=== PATIENT | female | born 1995 | race Caucasian/White ===

== ENCOUNTER 2021-06-10 12:24 | Emergency (ER) | payer BC, SELFPAY ==
[2021-06-10 13:30] VITALS: BP 134/80; PULSE 93; RESP 16; TEMP 37.1; O2SAT 100
--- NOTE | 2021-06-10 14:13 | ED.URI ---
HPI - URI/Sore Throat General Chief Complaint: Upper Respiratory Infection Stated Complaint: sore throat,fever,cough Source: patient Mode of arrival: ambulatory Limitations: no limitations History of Present Illness HPI Narrative: Patient is a 25-year-old female who presents complaining of cough, congestion, sore throat, hoarseness and fever x2 days. She denies known Covid exposure. Patient is not vaccinated. She denies chest pain or shortness of breath. She denies all other complaints at this time. Related Data Home Medications Medication Instructions Recorded Confirmed No Home Medications 06/10/21 06/10/21 Allergies Allergy/AdvReac Type Severity Reaction Status Date / Time No Known Allergies Allergy Mild Verified 06/10/21 15:04 Review of Systems Review of Systems: CONSTITUTIONAL: Reports fever, chills and body aches EYES: Denies visual changes, redness, or discharge. ENT: Denies rhinorrhea, congestion, reports sore throat and hoarseness CARDIOVASCULAR: Denies chest pain, palpitations, or edema. RESPIRATORY: Reports cough, denies dyspnea GASTROINTESTINAL: Denies abdominal pain, nausea, vomiting, or diarrhea. GENITOURINARY: Denies dysuria or hematuria. SKIN: Denies rash or itching. MUSCULOSKELETAL: Denies back pain, joint pain, or myalgia. NEUROLOGIC: Denies headache, numbness, dizziness, or weakness. PSYCHIATRIC: Denies anxiety or depression. PMFSH Comments At the time of signature, I have reviewed and agree with nursing past medical, surgical, social, and family history unless otherwise noted. Please see nursing chart for further information. There is no relevant family history pertinent to the presenting complaint. Exam Narrative: GENERAL: Well-appearing, well-nourished, and in no acute distress. HEAD: Normocephalic, atraumatic. EYES: EOMI. No redness or drainage. Conjunctiva are normal. ENT: Mucous membranes pink and moist. Nares clear. No rhinorrhea. TMs normal bilaterally. Throat with moderate erythema and edema, no exudate. Uvula midline. NECK: AROM. Supple. No lymphadenopathy. CHEST: No respiratory distress. Clear to auscultation. HEART: Regular rate and rhythm. No murmur appreciated. Normal peripheral pulses. GI: Soft, nontender without rebound, or guarding. No distention. Bowel sounds normal in all quadrants. MUSCULOSKELETAL: No bony tenderness. EXTREMITIES: Normal range of motion. No edema. SKIN: Warm, dry, no rash. NEURO: No focal deficits. Alert and oriented x3. Gait steady. PSYCH: Normal affect. No signs of depression or anxiety. Course Vital Signs Vital signs: Vital Signs Temperature 37.1 C 06/10/21 13:30 Pulse Rate 93 06/10/21 13:30 Respiratory Rate 16 06/10/21 13:30 Blood Pressure 134/80 06/10/21 13:30 Pulse Oximetry 100 06/10/21 13:30 Temperature 37.1 C 06/10/21 13:30 Pulse Rate 93 06/10/21 13:30 Respiratory Rate 16 06/10/21 13:30 Blood Pressure 134/80 06/10/21 13:30 Pulse Oximetry 100 06/10/21 13:30 Reviewed-patient is informed that they may have pre-hypertension or hypertension based on a blood pressure reading. I recommend the patient call the primary care provider listed on their discharge instructions or a physician of their choice this week to arrange follow-up for further evaluation of possible pre-hypertension or hypertension. MDM - URI/Sore Throat MDM Narrative Medical decision making narrative: Patient's rapid strep and rapid Covid are negative at this time. Discussed with patient the need for quarantine until symptoms are gone. Patient refuses Covid PCR testing at this time. Patient is unvaccinated and is aware of the possibility of Covid. Patient is stable for discharge home with outpatient follow-up as needed. Patient is aware of red flags and when to seek further treatment. Differential Diagnosis Differential diagnosis: Likely other (URI, tonsillitis, pharyngitis, Covid, influenza) Lab Data Labs: Strep Screen
== END 2021-06-10 15:10 | disposition home or self-care (01) ==
PROVIDERS: Emergency Provider Nurse Practitioner
DX: J06.9 Acute upper respiratory infection, unspecified (principal); Z20.822 Contact with and (suspected) exposure to COVID-19
CPT/HCPCS: 87081; 87426; 87880; 99203; C9803; G0463

== ENCOUNTER 2022-09-13 09:29 | Emergency (ER) | payer BC, SELFPAY ==
[2022-09-13 09:36] VITALS: BP 132/80; PULSE 79; RESP 16; TEMP 36.5; O2SAT 100
--- NOTE | 2022-09-13 09:37 | ED.URI ---
HPI - URI/Sore Throat General Chief Complaint: Unspecified Stated Complaint: HEADACHE/SORE THROAT/BACTERIAL MENINGITIS EXPOSURE Time Seen by Provider: 09/13/22 09:37 Source: patient and RN notes reviewed History of Present Illness HPI Narrative: Patient is a 27-year-old female who presents to urgent care with complaints of headache and postnasal drainage. Patient states she has had a mild sore throat for the last couple days. States that she is most concerned due to her contact with a younger child diagnosed with bacterial meningitis. 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 States that the child is admitted to [facility] and is very sick with a headache, fever. Patient states that she has also been in contact with the family since the child was admitted to the hospital. Patient denies any recent fevers, nausea, vomiting. No other acute complaints. No acute distress noted. Patient aware of plan of care. Some parts of this dictation were generated by voice recognition software and may contain typographical and/or grammatical inaccuracies. Related Data Allergies Allergy/AdvReac Type Severity Reaction Status Date / Time No Known Allergies Allergy Mild Verified 06/10/21 15:04 Review of Systems Review of Systems: CONSTITUTIONAL: Denies fever, chills, or sweats. EYES: Denies visual changes, redness, or discharge. ENT: Denies rhinorrhea, congestion, otalgia. Reports a sore throat and postnasal drainage CARDIOVASCULAR: Denies chest pain, palpitations, or edema. RESPIRATORY: Denies cough or dyspnea. GASTROINTESTINAL: Denies abdominal pain, nausea, vomiting, or diarrhea. GENITOURINARY: Denies dysuria or hematuria. SKIN: Denies rash or itching. MUSCULOSKELETAL: Denies back pain, joint pain, or myalgia. NEUROLOGIC: Reports of headache All other systems reviewed are negative, except as documented in HPI. PMFSH Comments At the time of my signature, I reviewed and agree with the nursing past medical, surgical, social, and family history. There is no relevant family history pertinent to the patient complaint. Exam Narrative: GENERAL: This is a well-nourished, well-developed patient, tearful HEAD: normocephalic, atraumatic. EYES: PERRL. Sclera clear/white. Vision is grossly intact. EARS: External ears normal, auditory canals clear and without drainage, TMs normal without perforation. Hearing grossly intact. NOSE: External nose normal with no obvious nasal discharge, nares without redness, no rhinorrhea. THROAT: Mucous membranes moist, posterior pharynx clear. Moderate postnasal drainage NECK: Neck supple, non-tender without lymphadenopathy, masses or thyromegaly. CARDIOVASCULAR: Regular rate and rhythm without murmurs, gallops, or rubs. RESPIRATORY: Clear to auscultation. Breath sounds equal bilaterally. No wheezes, rales, or rhonchi. SKIN: warm, intact with no suspicious lesions or rash, good texture and turgor. NEURO: awake, alert, and oriented to person, place and time. There were no obvious focal neurologic abnormalities. EXTREMITIES: No clubbing, cyanosis, or edema. Course Course Level of Care: Express Care Visit Vital Signs Vital signs: Vital Signs Temperature 97.7 F 09/13/22 09:36 Pulse Rate 79 09/13/22 09:36 Respiratory Rate 16 09/13/22 09:36 Blood Pressure 132/80 09/13/22 09:36 Pulse Oximetry 100 09/13/22 09:36 Oxygen Delivery Room Air 09/13/22 09:36 Temperature 97.7 F 09/13/22 09:36 Pulse Rate 79 09/13/22 09:36 Respiratory Rate 16 09/13/22 09:36 Blood Pressure 132/80 09/13/22 09:36 Pulse Oximetry 100 09/13/22 09:36 Oxygen Delivery Room Air 09/13/22 09:36 Reviewed MDM - URI/Sore Throat MDM Narrative Medical decision making narrative: Reviewed lab results with the patient. She is aware that strep swab was negative. Educated patient on culture we will call within 72 hours if culture is positive a
== END 2022-09-13 10:11 | disposition home or self-care (01) ==
PROVIDERS: Emergency Provider Nurse Practitioner Family
DX: R51.9 Headache, unspecified (principal); J02.9 Acute pharyngitis, unspecified; Z20.811 Contact with and (suspected) exposure to meningococcus
CPT/HCPCS: 87081; 87880; 99213; G0463

== ENCOUNTER 2022-10-18 11:36 | Emergency (ER) | payer BC, SELFPAY ==
[2022-10-18 11:48] VITALS: BP 123/81; PULSE 111; RESP 16; TEMP 36.5; O2SAT 100
--- NOTE | 2022-10-18 11:58 | ED.URI ---
HPI - URI/Sore Throat General Chief Complaint: Upper Respiratory Infection Stated Complaint: SORE THROAT Time Seen by Provider: 10/18/22 11:59 Source: patient, RN notes reviewed and old records reviewed Mode of arrival: ambulatory Limitations: no limitations History of Present Illness HPI Narrative: 27 year old female who presents to [facility] care with complaints of sore throat, hoarseness, body aches, headaches, sinus congestion and drainage, with fevers up to 100F since yesterday. Patient reports she has taken ibuprofen for her discomfort. Patient denies any ill exposures, has not been Covid vaccinated or had flu shot. MD elicited complaint: fever, sore throat and other (hoarseness, body aches, headache) Onset (ago): day(s) (since yesterday) Pain scale (0-10): 3 Able to tolerate fluids by mouth: Yes Exacerbating factors: swallowing Treatments prior to arrival: ibuprofen Related Data Home Medications Medication Instructions Recorded Confirmed No Home Medications 10/18/22 10/18/22 Allergies Allergy/AdvReac Type Severity Reaction Status Date / Time No Known Allergies Allergy Mild Verified 10/18/22 11:51 Review of Systems Review of Systems: CONSTITUTIONAL: Reports malaise, chills, sweats, or fever. EYES: Denies visual changes, redness, or discharge. ENT: Reports rhinorrhea, congestion, no sinus pain, no otalgia, positive for sore throat. CARDIOVASCULAR: Denies chest pain, palpitations, or edema. RESPIRATORY: Reports no cough.? Denies dyspnea. GASTROINTESTINAL: Denies abdominal pain, nausea, vomiting, diarrhea SKIN: Denies rash or itching. MUSCULOSKELETAL: Reports myalgia. NEUROLOGIC: Reports headache. All systems reviewed & are unremarkable except as noted in HPI and below PMFSH Past Medical History Medical History (Updated 10/18/22 @ 12:34 by Gloria Kumar NP) Radius fracture right Social History Social History (Updated 10/18/22 @ 12:22 by Gloria Kumar NP) Smoking status: Never smoker Alcohol intake: current Alcohol use details: social Substance use type: does not use Living arrangements: with family Gender identity (if verbalized by the patient): Female Comments At time of signature, agree with nursing past medical, surgical, social and family history. There is no relevant family history pertinent to the presenting complaint Exam Narrative: GENERAL: Well-appearing, well-nourished, and in no acute distress. HEAD: Normocephalic EYES: PERRLA, conjunctivae clear ENT: Nares clear, turbinates edematous and erythematous, clear discharge. Mucous membranes moist. TM pearly david with dull light reflex bilaterally; no tragal tenderness. Oropharynx erythematous without lesions. Tonsils not enlarged and without exudate, no drooling, no hoarseness, no trismus, uvula midline.post nasal drainage NECK: Supple.some lymphadenopathy CHEST: Clear to auscultation, breath sounds equal. No wheezing, rhonchi, rales, or stridor. No respiratory distress, speaks in full sentences.SAO2 100% on room air HEART: Regular rate and rhythm. No murmur heard. SKIN: Warm, dry, no rash. NEURO: Alert and oriented x3. PSYCH: Normal mood and affect Course Course Emergency Course: Patient is aware of diagnosis, understands and agrees to treatment plan.? Anticipatory guidance given.? Patient agrees to follow-up as directed and is aware of reasons to seek care at the emergency department. Portions of this record may have been created with voice recognition software Level of Care: Express Care Visit Vital Signs Vital signs: Vital Signs Oxygen Delivery Room Air 10/18/22 11:45 Temperature 36.5 C 10/18/22 11:48 Pulse Rate 111 H 10/18/22 11:48 Respiratory Rate 16 10/18/22 11:48 Blood Pressure 123/81 10/18/22 11:48 Pulse Oximetry 100 10/18/22 11:48 Oxygen Delivery Room Air 10/18/22 11:45 Reviewed MDM - URI/Sore Throat MDM Narrative Medical d
== END 2022-10-18 12:30 | disposition home or self-care (01) ==
LOC: EXPGOSH 11:38
PROVIDERS: Emergency Provider Registered Nurse
DX: J06.9 Acute upper respiratory infection, unspecified (principal); Z20.822 Contact with and (suspected) exposure to COVID-19
CPT/HCPCS: 87081; 87426; 87804; 87880; 99213; C9803; G0463